=== PATIENT | male | born 1985 | race Two or more races ===

== ENCOUNTER 2016-10-09 06:06 | Emergency (ER) | payer OTHER ==
[~2016-10-09] VITALS: Ht 165.1 cm; Wt 68.9 kg
[2016-10-09 06:20] VITALS: BP 142/98
--- NOTE | 2016-10-09 06:20 | NUR ---
BB RA; HEARING VOICES. PT STATES "THEY NEED HELP" PT DENIES COMMAND VOICES. PT DENIES HI/SI. PT AOX4 RR EVEN AND UNLABORED. NO SOB NOTED. NAD NOTED. NO NVD AT THIS TIME. PT PLACED ON MONITOR WAITING FOR MD HACKETT.
[2016-10-09] MEDS ORDERED: WATER FOR INJECTION,STERILE 10 ML ONE (06:23)
[2016-10-09] MEDS ORDERED: OLANZAPINE 10 MG VIAL IM ONE ×2 (06:23→06:30)
--- NOTE | 2016-10-09 06:25 | NUR ---
URINE COLLECTED. CALLED LAB FOR FIRE ALARM INSTALLER
[2016-10-09] MEDS ORDERED: OLANZAPINE 5 MG TABLET PO ONE (06:30)
[2016-10-09 07:02] LABS: BASOPHILS % (AUTO) 0.7 % (0.0-2.0); EOSINOPHILS % (AUTO) 0.2 % (0.0-6.0); HEMATOCRIT 41 % (39-51); HEMOGLOBIN 13.8 g/dL (13.5-17.5); LYMPHOCYTES # (AUTO) 0.9 /CMM (0.8-4.8); LYMPHOCYTES % (AUTO) 17.8 % (20.0-44.0); MEAN CORPUSCULAR HEMOGLOBIN 29 PG (26.0-33.0); MEAN CORPUSCULAR HGB CONC 34 g/dl (31.0-36.0); MEAN CORPUSCULAR VOLUME 84 fL (80-96); MONOCYTES # (AUTO) 0.2 /CMM (0.1-1.30); MONOCYTES % (AUTO) 4.1 % (2.0-12.0); NEUTROPHILS % (AUTO) 77.2 % (43.0-81.0); PLATELET COUNT (AUTO) 262 /CMM (150-450); RDW COEFFICIENT OF VARIATION 12.5 (11.5-15.0); RED BLOOD CELL COUNT(AUTO) 4.82 MIL/uL (4.5-6.0); WHITE BLOOD COUNT (AUTO) 5.1 K/uL (4.3-11.0)
[2016-10-09 07:04] LABS: APPEARANCE,URINE CLEAR (CLEAR); BILIRUBIN,URINE NEGATIVE (NEGATIVE); BLOOD, URINE NEGATIVE Ery/uL (NEGATIVE); COLOR,URINE YELLOW (YELLOW); KETONES,URINE NEGATIVE (NEGATIVE); LEUKOCYTE ESTERASE ,URINE NEGATIVE (NEGATIVE); NITRITE, URINE NEGATIVE (NEGATIVE); PH,URINE 6.5 (5.0-8.0); PROTEIN,URINE NEGATIVE (NEGATIVE); UGLUCOSE NEGATIVE (NEGATIVE); UROBILINOGEN,URINE 0.2 EU/dL (0.2)
[2016-10-09 07:14] LABS: ALANINE AMINOTRANSFERASE 26 U/L (12-78); ALBUMIN 4.1 g/dL (3.4-5.0); ALKALINE PHOSPHATASE 55 U/L (46-116); ASPARTATE AMINOTRANSFERASE 19 U/L (15-37); BILIRUBIN,DIRECT 0.1 mg/dL (0.0-0.2); BILIRUBIN,TOTAL 0.3 mg/dL (0.2-1.0); CALCIUM, SERUM 8.3 mg/dL (8.5-10.1); CARBON DIOXIDE 28 mmol/L (21-32); CHLORIDE 103 mmol/L (98-107); CREATININE 0.9 mg/dL (0.6-1.3); GLUCOSE 109 mg/dL (74-106); POTASSIUM 3.7 mmol/L (3.5-5.1); SODIUM SERUM 140 mmol/L (136-145); TOTAL PROTEIN, SERUM 7.3 g/dL (6.4-8.2); UREA NITROGEN, BLOOD 10 mg/dL (7-18)
[2016-10-09 07:16] LABS: SALICYLATE 0.7 mg/dL (2.8-20.0)
[2016-10-09 07:17] LABS: ACETAMINOPHEN 0 ug/ml (10-30); ALCOHOL, BLOOD < 3 mg/dL (0-0)
--- NOTE | 2016-10-09 07:24 | NUR ---
REPORT GIVEN TO KARI WADSWORTH FOR C.O.C
--- NOTE | 2016-10-09 07:32 | NUR ---
CALLED [facility] FOR PSYCH EVAL ETA 0900.
--- NOTE | 2016-10-09 10:46 | NUR ---
[facility] [phone] MONICA ASKED TO CALL BACK IN 10 MIN
--- NOTE | 2016-10-09 11:12 | NUR ---
CALLED TO GIVE REPORT, NURSE IS REYES RN, EXT. [phone], REPORT GIVEN
--- NOTE | 2016-10-09 11:23 | NUR ---
CALLED [facility] FOR TRANSPORT TO [facility], ETA 45 MIN-60 MIN
--- NOTE | 2016-10-09 13:17 | NUR ---
PATIENT DID NOT AGREE TO GO TO [facility] AND HE DECIDED TO LEAVE, MD MADE AWARE, PATIENT ELOPED WITHOUT ANY DISCHARGE INSTRUCTIONS, STABLE AMBULATION,
== END 2016-10-09 13:30 | disposition left against medical advice (07) ==
LOC: ER 06:09
DX: F29 Unspecified psychosis not due to a substance or known physiological condition (principal); F31.9 Bipolar disorder, unspecified
CPT/HCPCS: 36415; 80048; 80076; 80305; 80329; 81001; 85025; 96372; 99284; A4606; G0480 ×2; J3490; Z7610; 81000-TC